=== PATIENT | male | born 1970 | race African-American/Black ===

== ENCOUNTER 2022-10-17 17:33 | Emergency (ER) | payer BC, MEDICAID ==
[~2022-10-17] VITALS: Ht 185.4 cm; Wt 113.4 kg
[~2022-10-17 17:33] MED LIST: AMLO10TA59 PO; CLON2TAB11 PO; TAMS-3 PO
--- NOTE | 2022-10-17 18:31 | NUR ---
Pending MD evaluation, patient is seen resting comfortably on gurney lying on his left side with eyes closed, NAD.
--- NOTE | 2022-10-17 18:33 | NUR ---
Dr [email or web address], medical screening exam in progress
[2022-10-17] MEDS ORDERED: OXYCODONE/APAP 5-325 MG TABLET PO ONE (18:45)
[2022-10-17] MEDS ORDERED: OXYCODONE/APAP 5-325 MG TABLET ONE (18:57)
[2022-10-17 19:03] LABS: HEMATOCRIT 37.2 % (36.7-47.1); MEAN CORPUSCULAR HEMOGLOBIN 28.5 uug (23.8-33.4); PLATELET COUNT (AUTO) 230 K/uL (152-348)
[2022-10-17 19:19] LABS: CARBON DIOXIDE 28 mmol/L (21-32); CHLORIDE 101 mmol/L (98-107); CREATININE 1.4 mg/dL (0.6-1.3); GLUCOSE 97 mg/dL (74-106); POTASSIUM 3.6 mmol/L (3.5-5.1); UREA NITROGEN, BLOOD 9 mg/dL (7-18)
[2022-10-17 19:24] LABS: ALANINE AMINOTRANSFERASE 15 U/L (16-63); ALKALINE PHOSPHATASE 91 U/L (50-136); ASPARTATE AMINOTRANSFERASE < 5 U/L (15-37); BILIRUBIN,DIRECT 0.3 mg/dL (0.0-0.2); TOTAL PROTEIN, SERUM 7.7 g/dL (6.4-8.2)
[2022-10-17 19:29] LABS: *BILIRUBIN,URIN NEGATIVE (NEGATIVE); *BLOOD, URINE NEGATIVE (NEGATIVE); *CLARITY,URINE CLEAR (CLEAR); *COLOR,URINE YELLOW (YELLOW); *KETONES,URINE NEGATIVE (NEGATIVE); LEUKOCYTE ESTERASE ,URINE NEGATIVE (NEGATIVE); NITRITE, URINE NEGATIVE (NEGATIVE); UGLUCOSE NEGATIVE (NEGATIVE)
[2022-10-17] MEDS ORDERED: CEFTRIAXONE 1 G in IV DEXTROSE 5% 50 ML IV ONE (19:30)
[2022-10-17] MEDS ORDERED: CEFTRIAXONE /D5W 50ML IVPB **ER PYXIS IV ONE (19:30)
[2022-10-17] MEDS ORDERED: AZITHROMYCIN IV 500 MG in IV DEXTROSE 5% 250 ML IV ONE (19:30)
[2022-10-17] MEDS ORDERED: AZITHROMYCIN 500MG/ D5W 250ML IVPB **ER PYXIS ONLY IV ONE (19:31)
[2022-10-17] MEDS ORDERED: IV NS 1000 ML 1,000 ML IV ONE (20:00)
[2022-10-17] MEDS ORDERED: AMOX-430 PO (20:31)
[2022-10-17] MEDS ORDERED: OXYC-128 PO (20:31)
[2022-10-17] MEDS ORDERED: AZIT250T13 PO (20:31)
--- NOTE | 2022-10-17 20:55 | NUR ---
Patient discharged to home in stable condition. Written and verbal after care instructions given. Patient verbalizes understanding of instructions. Stressed follow up or return to ER for worsening s/s. Patient is a/ox4, NAD noted. Patient is able to walk with a cane, accompanied by his SO
[2022-10-17 21:01] LABS: BACTERIA,URINE FEW /HPF (NONE SEEN); RBC,URINE 0-3 /HPF (0-3); SQUAMOUS EPITHELIAL CELL,UR FEW /HPF (NONE SEEN)
[2022-10-17 21:12] VITALS: BP 127/67
== END 2022-10-17 21:12 | disposition home or self-care (01) ==
LOC: ER 17:33
DX: J18.9 Pneumonia, unspecified organism (principal); Z20.822 Contact with and (suspected) exposure to COVID-19; I10 Essential (primary) hypertension; N40.0 Benign prostatic hyperplasia without lower urinary tract symptoms; F41.9 Anxiety disorder, unspecified; Z79.899 Other long term (current) drug therapy; Z82.49 Family history of ischemic heart disease and other diseases of the circulatory system; Z83.3 Family history of diabetes mellitus
CPT/HCPCS: 99284; 96365; 71045; 96367; 87426; 80076; 80048; 81001; 85025; 87040; 36415; J0456; J0696; J7040; A4663

== ENCOUNTER 2022-10-18 23:31 | Emergency (ER) | payer BC ==
[~2022-10-18] VITALS: Ht 185.4 cm; Wt 108.9 kg
[~2022-10-18 23:31] MED LIST changes: +AMOX-430 PO; +AZIT250T13 PO; +OXYC-128 PO
[2022-10-19] MEDS ORDERED: ASPIRIN 81 MG TAB.CHEW PO ONE
[2022-10-19] MEDS ORDERED: ACETAMINOPHEN ES 500 MG TABLET PO ONE
[2022-10-19] MEDS ORDERED: ACETAMINOPHEN ES 500 MG TABLET ONE (00:10)
[2022-10-19] MEDS ORDERED: ASPIRIN 81 MG TAB.CHEW ONE (00:10)
[2022-10-19] MEDS ORDERED: NITROGLYCERIN 0.4 MG/TAB BOTTLE SL ONE ×2 (00:10)
[2022-10-19] MEDS ORDERED: NITROGLYCERIN OINT 1 GM PACKET TP ONE ×2 (00:11)
[2022-10-19] MEDS ORDERED: OXYCODONE/APAP 5-325 MG TABLET PO ONE (00:15)
[2022-10-19] MEDS ORDERED: OXYCODONE/APAP 5-325 MG TABLET ONE (00:29)
[2022-10-19 00:35] LABS: HEMATOCRIT 35.6 % (36.7-47.1); MEAN CORPUSCULAR HEMOGLOBIN 28.6 uug (23.8-33.4); MEAN CORPUSCULAR VOLUME 83.6 fL (73.0-96.2); PLATELET COUNT (AUTO) 265 K/uL (152-348)
--- NOTE | 2022-10-19 00:35 | NUR ---
xray in progress
[2022-10-19 01:11] LABS: CARBON DIOXIDE 27 mmol/L (21-32); CHLORIDE 102 mmol/L (98-107); CREATININE 1.4 mg/dL (0.6-1.3); GLUCOSE 86 mg/dL (74-106); POTASSIUM 3.1 mmol/L (3.5-5.1); UREA NITROGEN, BLOOD 9 mg/dL (7-18)
[2022-10-19] MEDS ORDERED: MORPHINE SULFATE 10 MG/1 ML DISP.SYRIN IV ONE (01:15)
[2022-10-19] MEDS ORDERED: ONDANSETRON 4 MG/2 ML VIAL IV ONE (01:15)
[2022-10-19 01:28] LABS: ALANINE AMINOTRANSFERASE 29 U/L (16-63); ALKALINE PHOSPHATASE 91 U/L (50-136); ASPARTATE AMINOTRANSFERASE 19 U/L (15-37); BILIRUBIN,DIRECT 0.1 mg/dL (0.0-0.2); BILIRUBIN,TOTAL 0.4 mg/dL (0.2-1.0); TOTAL PROTEIN, SERUM 7.6 g/dL (6.4-8.2)
[2022-10-19] MEDS ORDERED: MORPHINE SULFATE 4 MG/1 ML DISP.SYRIN ONE ×2 (01:38→02:50)
[2022-10-19] MEDS ORDERED: MORPHINE SULFATE 4 MG/1 ML DISP.SYRIN IV ONE (02:45)
[2022-10-19] MEDS ORDERED: ONDANSETRON 4 MG/2 ML VIAL ONE (02:49)
[2022-10-19] MEDS ORDERED: IV NORMAL SALINE 250 ML IV ONE (03:29)
[2022-10-19] MEDS ORDERED: SWABABLE VALVE TRANSFER SET EA MC ONE (03:29)
[2022-10-19] MEDS ORDERED: IOHEXOL 350 100 ML INFUS..BTL ONE (03:29)
[2022-10-19] MEDS ORDERED: ONDA4TAB5 PO (04:45)
[2022-10-19] MEDS ORDERED: HYDR-3980 PO (04:45)
[2022-10-19] MEDS ORDERED: METOCLOPRAMIDE HCL 10 MG/2 ML VIAL ONE (05:09)
[2022-10-19] MEDS ORDERED: diphenhydrAMINE 50 MG/1 ML VIAL ONE (05:10)
[2022-10-19] MEDS ORDERED: METOCLOPRAMIDE HCL 10 MG/2 ML VIAL IV ONE (05:15)
[2022-10-19] MEDS ORDERED: diphenhydrAMINE 50 MG/1 ML VIAL IV ONE (05:15)
--- NOTE | 2022-10-19 06:25 | NUR ---
Patient discharged to home in stable condition. Written and verbal after care instructions given. Patient verbalizes understanding of instructions. Stressed follow up or return to ER for worsening s/s.
[2022-10-19 06:27] VITALS: BP 118/70
== END 2022-10-19 06:28 | disposition home or self-care (01) ==
LOC: ER 23:31
DX: R22.2 Localized swelling, mass and lump, trunk (principal); J18.9 Pneumonia, unspecified organism; R07.9 Chest pain, unspecified; Z72.0 Tobacco use; R94.31 Abnormal electrocardiogram [ECG] [EKG]; I10 Essential (primary) hypertension
CPT/HCPCS: 71045; 36415; 93005; 99285; 96374; 71275; 96375; 80076; 80048; 83880; 85025; 85379; 84484 ×2; 96376; J1200; J2765; J2405; Q9967; J2270 ×3; A9150